=== PATIENT | female | born 1995 | race Caucasian/White ===

== ENCOUNTER 2024-02-07 10:56 | Outpatient (CLI) | payer OTHER, SELFPAY ==
--- NOTE | 2024-02-07 11:15 | CRLHL7_ITS ---
For Patients: As a result of the Century Cures Act, medical imaging exams and procedure reports are released immediately into your electronic medical record. You may view this report before your referring provider. If you have questions, please contact your health care provider. INDICATION : HISTORY OF PAPILLARY THYROID CANCER STATUS POST TOTAL THYROIDECTOMY. ENLARGED RIGHT CERVICAL LYMPH NODE. TECHNIQUE : Ultrasound-guided fine-needle aspiration of right cervical lymph node. Comparison : Ultrasound 01/24/2024 FINDINGS : PROCEDURE: After the informed consent and time-out, multiple fine needle aspirations were obtained from the right cervical lymph node. Fine needle performed. 25 gauge needles were used. Lidocaine was used for local anesthesia. The preliminary cytology was adequate for interpretation. Real-time imaging was used for guidance and needle placement. Post imaging ultrasound demonstrates no immediate complication. IMPRESSION : Successful fine needle aspiration of right cervical lymph node. Dictated by Ki Bradley MD @ 02/07/2024 12:20:13 PM (Electronically Signed)
== END 2024-02-07 10:57 | disposition home or self-care (01) ==
LOC: US 11:03
PROVIDERS: PCP Nurse Practitioner Family; Visit Provider Internal Medicine
DX: C73 Malignant neoplasm of thyroid gland (principal); R59.0 Localized enlarged lymph nodes
CPT/HCPCS: 10005; 36415; 84432; 88173

== ENCOUNTER 2025-04-19 10:47 | Emergency (ER) | payer OTHER, SELFPAY ==
[2025-04-19 10:55] VITALS: BP 150/98; PULSE 74; RESP 18; TEMP 36.8; O2SAT 97; BMI 57.0
--- OUTSIDE RECORDS SUMMARY | 2025-04-19 11:01 | XMS_ITS | Clinical Summary ---
Author Organization [facility] Address [address] [place] [id number] Care Team Providers Care Athletic Shoe Designer Name Role Phone Neeru Alfonso NP Primary Care Provider SchempOdilon singh MD Unavailable [phone] Allergies Active Allergy Reactions Criticality Noted Date Comments Latex Hives High 03/15/2008 Medications omeprazole (PRILOSEC) 20 mg Delayed-Release capsuleIndicatio ns:Hiatal hernia,Gastritis , presence of bleeding unspecified, unspecified chronicity, unspecified gastritis type TAKE 1 CAPSULE(20 MG) BY MOUTH EVERY DAY BEFORE A MEAL 90 Capsule 2 4 Active durable medical equipment (DME)Indications :Carpal tunnel syndrome of right wrist Comfort Form Wrist , RT, XL 1 Each 4 Active Additional Information Patient not taking.Reported on 03/05/2025 levothyroxine (SYNTHROID) 200 mcg tabletIndication s:Thyroid cancer (HC) Take 250mcg daily (200mcg tablet + 50mcg tablet) 90 Tablet 3 5 Active levothyroxine (SYNTHROID) 50 mcg tabletIndication s:Thyroid cancer (HC) Take 250mcg daily (200mcg tablet + 50mcg tablet) 90 Tablet 3 5 Active labetaloL 100 mg tabletIndication s:HTN (hypertension) TAKE 1/2 TABLET(50 MG) BY MOUTH TWICE DAILY 180 Tablet 1 5 Active Cetirizine (ZyrTEC) 10 mg cap Take 2 Capsules by mouth at bedtime. Active loratadine (Claritin) 10 mg tablet Take 20 mg by mouth once daily. Active PNV Comb#19-Iron-FA- [place] 3 29-1-400 mg tablet Take 1 Tablet by mouth once daily. Active medroxyPROGESTER one (Provera) 10 mg tabletIndication s:PCOS (polycystic ovarian syndrome),Abnorm al uterine bleeding (AUB) Take 1 pill by mouth for 10 days of the month, repeat monthly 90 Tablet Active predniSONE (DELTASONE) 10 mg tabletIndication s:Urticaria TAKE 4 TABLETS EVERY DAY X3 DAYS, 3 TABLETS EVERY DAY X3 DAYS, 2 TABLETS EVERY DAY X3 DAYS, 1 TABLET EVERY DAY X3 DAYS. WITH FOOD 30 Tablet Active Hospital, Clinic, or Other Facility Administered Medication Ordered Dose Route Frequency Start Date End Date Status triamcinolone acetonide (KENALOG) injection 20 mgIndications:Carpal tunnel syndrome of right wrist 20 mg IArtic ONE TIME 04/02/2025 04/02/2025 Ended Active Problems Problem Noted Date Diagnosed Date Pap smear for cervical cancer screening 02/14/20 24 Overview (02/14/2024): 02/04/2024: NIL/HPV negative Plan: Pap and HPV due in 5 years. Post-surgical hypothyroidism 11/15/2023 Carpal tunnel syndrome of right wrist 10/25/2023 Carpal tunnel syndrome of left wrist 10/25/2023 Cubital tunnel syndrome on right 10/25/2023 Thyroid cancer 10/22/2022 Cancer Staging:Pathologic stage from 10/22/2022:Stage I(pT3a, pN0, cM0, Age at diagnosis: < 55 years) - Signed by Tammy Shaikh MD on 11/29/2022 Urticaria 07/18/2022 Systemic inflammatory respon se syndrome (SIRS) due to non-infectious process without acute organ dysfunction 07/18/2022 Anaphylaxis 07/18/2022 PCOS (polycystic ovarian syndrome) 08/29/2021 Kidney stone 08/29/2021 Morbid obesity with BMI of 45.0-49.9, adult 12/10/2017 Anxiety 04/26/2017 Mild intermittent asthma 01/04/2010 Gastritis Resolved Problems Problem Noted Date Diagnosed Date Resolved Date Multiple thyroid nodules 06/17/202204/2024 Hyperthyroidism 03/16/2022 11/15/2023 Encounters Date Type Department Care Team Description 04/08/[address] [place] [address] Neeru Alfonso NP Refill Request (Prednisone) 04/02/2025 12:30 PM CDT Office Visit [facility] [address] [facility] [place] [address] Franklin Junior MD Recheck (Right Wrist) 04/01/2025 Travel 03/10/[address] [place] [address] Nikia Rogers DO Refill Request (Medroxyprogesterone 10 mg) 03/05/2025 3:30 PM CDT Office Visit [address] [place] [address] Nikia Rogers DO Direct Mail Manager Exam (Follow up to starting progesterone and fertility) 03/05/2025 Travel 01/22/2025 4:00 PM CDT Ancillary Procedure [facility] [address] [place] [address] 01/22/2025 Travel 01/17/2025 Travel from Last 3 Months Immunizations Immunization Administration Dates Next Due COVID-19 vaccine (Pfizer-Bio NTech 30mcg/0.3mL) 12YO+ BIVALENT PF, MDV 12/21/2022 COVID-19 vaccine (Pfizer-Bio NTech 30mcg/0.3mL) 12YO+ ELAINE-SUCROSE PF, MDV 08/29/2021 HPV 9 (Gardasil 9) 03/16/2022,08/29/2021 Human Papilloma Virus Vaccine 12/23/2014 Influenza, IIV4 03/16/2022 MENINGOCOCCAL VACCINE 2 VIAL 2MO-55YO (MENVEO) 0 12/23/2014 Pneumococcal Conj 20-valent (Prevnar 20) 023 Pneumococcal Poly,23-Valent (Pneumovax) 08/29/19 22 Tdap 01/05/2015 Family History Medical History Relation Name Comments Good Health Brother Good Health Father Good Health Mother Hypertension Mother Good Health Sister Relation Name Status Comments Brother Father Alive Mother Alive Sister Social History Tobacco Use Types Packs/Day Years Used Date Smoking Tobacco: Never Smokeless Tobacco: Never Tobacco Cessation:Counseling Given: Yes Alcohol Use Standard Drinks/Week Comments Yes 0 (1 standard drink = 0.6 oz pur e alcohol) very rare PHQ-2 Answer Date Recorded PHQ-2 TOTAL SCORE 0 09/30/2023 Social Connections Answer Date Recorded Do you often feel lonely or isolated from those around you? 0 02/04/2024 Financial Resource Strain Answer Date R ecorded Difficulty of Paying Living Expenses 3 02/04/2024 Difficulty of Paying Living Expenses Not on file 02/04/2024 Food Insecurity Answer Date Recorded Do you worry your food will run out before you are able to buy more? 1 02/04/2024 Transportation Needs Answer Date Record ed Does lack of transportation keep you from medica l appointments? 1 02/04/2024 Does lack of transportation keep you from work, meetings or getting things that you need? 1 02/04/2024 Housing Stability Answer Date Recorded What is your housing situation today? 1 02/04/2024 Utilities Answer Date Recorded Do you have trouble paying f or utilities (for example, heat, electricity, water, phone)? 1 02/04/2024 Comments No Sex and Gender Information Value Date Recorded Sex Assigned at Not on file Legal Sex Female 5:44 AM DEEP [employer] Gender Identity Not on file Sexual Orientation Not on file Obstetrics History Para Term AB IAB SAB Ectopic Multiple Livin g Live Births 0 0 0 0 0 0 0 0 0 0 0 Last Filed Vital Signs Vital Sign Reading Time Taken Comments Blood Pressure 132/82 03/05/2025 3:30 PM CDT Pulse 80 03/05/2025 3:30 PM CDT Temperature 36.4 C (97.5 F) 11/08/2022 2:00 PM CDT Respiratory Rate 18 02/04/2024 1:18 PM CDT Oxygen Saturation 98% 11/04/2023 2:15 PM CDT Inhaled Oxygen Concentration - - Weight 173.1 kg (381 lb 9.6 oz) 03/05/2025 3:30 PM CDT Height 173 cm (5' 8.11) 03/05/2025 3:30 PM CDT Body Mass Index 57.83 03/05/2025 3:30 PM CDT Plan of Treatment Health Maintenance Due Date Last Done Comments HIV for age 15-65 2010 Hepatitis B series for 19+ ( 1 of 3 - 19+ 3-dose series) 2014 Depression screening for age 12+ 09/29/2024 09/30/2023, 03/16/2022, 01/12/2021, Additional history exists Tetanus booster 01/05/2025 01/05/2015 COVID-19 vaccine series ( season) 2025 12/21/2022, 08/29/2021, 04/24/2021, Additional history exists Influenza Vaccine (#1) 2025 03/16/2022 BMI (ht and wt on same day) for age 18+ 03/05/2026 03/05/2025, 02/04/2024, 11/04/2023, Additional history exists Pap test for age 21-65 02/03/2029 , 02/04/2024, 01/12/2021, Additional history exists RSV vaccine for adults or (1 - 1-dose 75+ series) 2070 HPV series for age 9-45 Completed 03/16/20, 08/29/2021, 12/23/2014 Hepatitis C screening for ag e 18-79 Completed 03/16/2022 Pneumococcal series for age 6-49 Completed 12/22/19 23, 08/29/2021 Goals Goal Patient Goal Type Associated Problems Recent Progress Patient-Stated? Author BLOOD PRESSURE-MA INTAINS BP LESS THAN 130/80 Blood Pressure No Ashanti Lobo RN Procedures Procedure Name Priority Date/Time Associated Diagnosis Comments US NECK OR HEAD SOFT TISSUE Routine 01/22/2025 4:12 PM CDT Thyroid cancer (HC) PRACTICE ADVISOR THIN PREP PAP SCREEN IMAGED Routine 02/04/2024 1:10 PM CDT Screening for malignant neoplasm of cervix ANTI HCV Routine 03/16/2022 4:23 PM CDT Encounter for hepatitis C screening test for low risk patient from Last 3 Months or Most Recently Relevant to Health Maintenance Results * US NECK OR HEAD SOFT TISSUE (01/22/2025 4:12 PM CDT) Anatomical Region Laterality Modality NECK Ultrasound 01/25/2025 3:28 PM CDT Narrative 01/25/2025 3:28 PM CDT For Patients: As a result of the Cures Act, medical imaging exams and procedure reports are released immediately into your electronic medical record. You may view this report before your referring provider. If you have questions, please contact your health care provider. INDICATION : Thyroidectomy. Thyroid carcinoma. TECHNIQUE : Soft tissue ultrasound thyroid fossa and neck COMPARISON: 01/24/2024. FINDINGS : Stable ovoid hypoechoic structure in the right cervical chain 2.0 x 1.6 cm previously 2.4 x 2.0 cm. No new soft tissue mass in the thyroid fossa. IMPRESSION : 1. No recurrent mass in the thyroid fossa. 2. Stable ovoid hypoechoic structure right cervical chain possibly a lymph node. Dictated by Anderson Gonzalez MD @ 01/25/2025 3:28:19 PM (Electronically Signed) Procedure Note Anderson Gonzalez MD - 01/25/2025 For Patients: As a result of the Cures Act, medical imagingexams and procedure reports are released immediately into your electronicmedical record. You may view this report before your referring provider.If you have questions, please contact your health care provider. INDICATION : Thyroidectomy. Thyroid carcinoma. TECHNIQUE : Soft tissue ultrasound thyroid fossa and neck COMPARISON: 01/24/2024. FINDINGS : Stable ovoid hypoechoic structure in the right cervical chain 2.0 x 1.6 cmpreviously 2.4 x 2.0 cm. No new soft tissue mass in the thyroid fossa. IMPRESSION : 1. No recurrent mass in the thyroid fossa. 2. Stable ovoid hypoechoic structure right cervical chain possibly a lymphnode. Dictated by Anderson Gonzalez MD @ 01/25/2025 3:28:19 PM (Electronically Signed) Odilon Marcum MD Final Resu lt * PRACTICE ADVISOR THIN PREP PAP SCREEN IMAGED [[id number]] (02/04/2024 1:10 PM CDT) Case Report Gynecologic Cytology Report Case: [id number] Authorizing Provider: Neeru Alfonso NP Collected: 02/04/2024 1310 Ordering Location: [facility] Received: 02/04/2024 1427 Clinic First Screen: Cassi Gaytan Specimen: PRACTICE ADVISOR ThinPrep Vial Screening, Cervical 02/13/2024 12:59 PM CDT [facility] INTERPRETATION/ RESULT NEGATIVE FOR INTRAEPITHELIAL LESION OR MALIGNANCY (NIL) (none) 02/13/2024 12:59 PM CDT [facility] at 1259 CDT SPECIMEN ADEQUACY Satisfactory for evaluation No endocervical component seen 02/13/2024 12:59 PM CDT [facility] HPV REQUEST HPV and PAP 02/13/2024 12:59 PM CDT [facility] Date of LMP 01/23/2024 02/13/2024 12:59 PM CDT [facility] Last Pap Date 01/12/21 02/13/2024 12:59 PM CDT [facility] Last Pap Result NIL 12:59 PM CDT [facility] Abnormal Pap or [place] Bx in last 5 years No 02/13/2024 12:59 PM CDT [facility] Menstrual Status Regular Periods 02/13/2024 12:59 PM CDT [facility] [place] Bx Done Today No 02/13/2024 12:59 PM CDT [facility] [employer] [facility] Additional Information None given 02/13/2024 12:59 PM CDT [facility] Comment: [email or web address] - [address], [place] [address] and [facility] - [address], [place] [address] and [facility] - [address] [place] [address] Interpreted at [facility] - [address] [place] [address] Automated Review Successful 02/13/2024 12:59 PM CDT [facility] ENTR[facility] LAB[facility] Comment:Specimen processed s uccessfully by automated shaft sinker device, dotHIVPrep Imaging System, [email or web address] ANCILLARY TESTING PRACTICE ADVISOR HPV Ordered, Please see separate report 02/13/2024 12:59 PM CDT [facility] ENTR[facility] LABORATORY Note The pap test is a screening technique, not a diagnostic procedure. It is used primarily to screen for squamous cancers and precursor lesions. Published studies have shown that it is subject to both false negative and false positive results. The pap test should not be used as the sole means to diagnose or exclude pre-malignant and malignant lesions. 02/13/2024 12:59 PM CDT [facility] Other (Cervical) Non-Blood / Unknown 02/04/2024 1:10 PM CDT 02/04/2024 2:27 PM CDT us Neeru Alfonso NP PATHOLOGY/CYTOLOGY Final Res ult [facility] [address] [place] [address], [place] * ANTI HCV (03/16/2022 4:23 PM CDT) HEPATITIS C ANTIBODY Non-React erin Non-React erin 03/17/2022 1:34 PM CDT [facility] Comment:Antibodies to HCV no t detected; does not exclude the possibility of exposure to HCV. Blood BLOOD SPECIMEN / Unknown Venipuncture / Unknown 03/16/2022 4:23 PM CDT 03/16/2022 4:26 PM CDT us Neeru Alfonso NP SEND OUTS Final Result [facility] [address] [place] [address], from Last 3 Months or Most Recently Relevant to Health Maintenance Insurance [employer] Advance Directives * Full Code (Latest Code Status on File) Date Activated Date Inactivated Comments 11/08/2022 8:21 AM 11/08/2022 4:25 PM Question Answer Comments Code Status Discussion: Reviewed Preferences * Full Code Date Activated Date Inactivated Comments 10/11/2022 6:26 AM 10/11/2022 6:07 PM Question Answer Comments Code Status Discussion: Reviewed Preferences * Full Code Date Activated Date Inactivated Comments 07/18/2022 5:23 AM 07/18/2022 5:36 PM Question Answer Comments Code Status Discussion: Reviewed Preferences * Full Code Date Activated Date Inactivated Comments 05/30/2021 12:21 PM 05/30/2021 4:33 PM Question Answer Comments Code Status Discussion: Discussed Care Teams Athletic Shoe Designer Relationship Specialty Start Date End Date Neeru Alfonso NP [address] [facility] [place] [address] PCP - General Family Practice 11/26/12 [facility] [address] [facility] [address] [place] [address] Endocrinology 09/03/24
--- NOTE | 2025-04-19 11:19 | CRLHL7_ITS ---
For Patients: As a result of the Century Cures Act, medical imaging exams and procedure reports are released immediately into your electronic medical record. You may view this report before your referring provider. If you have questions, please contact your health care provider. INDICATION: Left flank pain, history of stones.. TECHNIQUE: CT abdomen and pelvis without contrast. COMPARISON: CT abdomen and pelvis 06/18/2021. FINDINGS: Lower chest: Unremarkable. Liver: Normal in size and attenuation. No suspicious masses. Gallbladder and bile ducts: No stones or inflammation. No biliary dilatation. Pancreas: Unremarkable. No mass or inflammation. Spleen: Normal in size. No masses. Adrenal glands: Normal in size. No nodules. Kidneys: 2 mm nonobstructing right nephrolith. 2 mm stone within the left distal ureter just proximal to the ureterovesicular junction without significant associated proximal hydroureteronephrosis. GI tract: Small hiatal hernia. No bowel obstruction. No mural thickening. Normal appendix. Vasculature: Abdominal aorta is normal in caliber. Lymph nodes: No lymphadenopathy. Peritoneum/Abdominal Wall: Unremarkable. No free air or significant free fluid. Pelvis: Unremarkable. No pelvic masses. Bones: Unremarkable for age. IMPRESSION: 1. 2 mm stone within the left distal ureter just proximal to the ureterovesicular junction without significant associated proximal hydroureteronephrosis. 2. 2 mm nonobstructing right nephrolith. Please note that all CT scans at this facility use dose modulation, iterative reconstruction, and/or weight-based dosing when appropriate to reduce radiation dose to as low as reasonably achievable. Dictated by Johnnie Cintron MD @ 04/19/2025 12:02:19 PM (Electronically Signed)
--- NOTE | 2025-04-19 11:22 | ED_ITS ---
HPI - General Adult General Date Seen: 04/19/25 Chief complaint: Flank Pain Stated complaint: kidney stone Time Seen by Provider: 04/19/25 10:54 History of Present Illness HPI narrative: Patient is a 30-year-old young woman here with her for evaluation of left flank pain. She tells me that she has a history of a kidney stone once before that felt similar. This was a larger stone that she was ultimately able to pass but she says it took 3 weeks. She thinks she has passed a couple of smaller 1 since then. She has been having some pain in her left hip area with sleep the past couple of days and then this morning developed sharper pain in the left flank. She just finished her period, has noted some blood in her urine but she isn't sure if that is residual from her period. She has not had dysuria or fevers. She has had some nausea but no vomiting. She took an oxycodone at home and so pain is improved at this point. No suspicion of . She notes a history of thyroid cancer status post thyroidectomy, on replacement. She does not smoke or drink. Related Data Home Medications ?Medication ?Instructions ?Recorded ?Confirmed labetalol 100 mg tablet PO 04/19/25 levothyroxine 200 mcg tablet 200 mcg PO DAILY 04/19/25 04/19/25 levothyroxine 50 mcg tablet 50 mcg PO DAILY 04/19/25 1 medroxyprogesterone 10 mg tablet mg PO 04/19/25 prednisone 10 mg tablet PO 04/19/25 triamcinolone acetonide 0.1 % 1 applic topical BID-TID 04/19/25 04/19/25 topical cream Previous Rx's ?Medication ?Instructions ?Recorded tamsulosin 0.4 mg capsule (Flomax) 0.4 mg PO DAILY #10 caps 04/19/25 Allergies Allergy/AdvReac Type Severity Reaction Status Date / Time latex Allergy Severe hives, Verified 04/19/25 11:03 anaphaxis metformin Allergy Intermediate vomited Verified 04/19/25 11:03 Review of Systems Status of ROS: Reports: 6 or more systems reviewed and unremarkable except as noted in History and below Exam Narrative: Exam Narrative: Vital signs reviewed In general, alert, nontoxic young woman. She looks comfortable at this time Head: Normocephalic, atraumatic. Eyes: Sclera clear. Pupils equal and reactive. ENT: Mucous membranes moist. Neck: Supple without adenopathy. Heart: Regular rate and rhythm without murmur. Lungs: Clear. No increased work of breathing, crackles or wheezes. Abdomen: Soft, nontender to palpation. No CVA tenderness. Extremities: Well perfused, pulses intact. No significant edema. Neurologic: Alert, conversant. Speech fluent, face symmetric. Moves all extremities equally. Skin: Warm, dry well perfused. Affect: Normal. Const: Vital Signs, click to edit/add: Vital Signs - 24 hr 04/19/25 10:55 Temperature 98.2 F Pulse Rate [Radial ] 74 Respiratory Rate 18 Blood Pressure [Ri ght Upper Arm] 150/98 H Pulse Oximetry 97 Oxygen Delivery Me thod Room Air Course Course ED Course: Patient presents with left flank pain, according to her this feels similar to previous kidney stones. She did provide a urine sample and this is pending at this time. Will get a noncontrast CT to look for ureteral stone, hydronephrosis etcetera. Will give some Toradol and Zofran, L of fluids IV. Patient is feeling well. I reviewed her CT scan, she does have a 2 mm ureteral stone near the UVJ, no significant hydronephrosis. I reviewed the radiology report which is in agreement. She also has a nonobstructing stone on the right. I reviewed all these results with her. Her urinalysis shows a large number of red cells but no white cells, she is afebrile and nontoxic here. Pain is controlled. She is comfortable with discharge. She has felt like Flomax was helpful in the past with her symptoms so will prescribe that as well as oxycodone, Zofran, ibuprofen 3 times daily for baseline pain control. Strain urine, discussed reasons to return such as severe uncontrolled pain, shaking chills or fever, otherwise recommend urology follow-up if she does not pass the stone in the next couple of weeks. Reviewed that this stone based on its size should pass without intervention. Vital Signs Vital signs: Initial Vital Signs Temperature 98.2 F 04/19/25 10:55 Temperature Source Temporal Artery Scan 04/19/25 10:55 Pulse Rate 74 04/19/25 10:55 Respiratory Rate 18 04/19/25 10:55 Blood Pressure 150/98 H 04/19/25 10:55 Blood Pressure Mean 115 H 04/19/25 10:55 Blood Pressure Position Sitting 04/19/25 10:55 Pulse Oximetry 97 04/19/25 10:55 Oxygen Delivery Method Room Air 04/19/25 10:55 Vital Signs Temperature 98.2 F 04/19/25 10:55 Pulse Rate 74 04/19/25 10:55 Respiratory Rate 18 04/19/25 10:55 Blood Pressure 150/98 H 04/19/25 10:55 Pulse Oximetry 97 04/19/25 10:55 Oxygen Delivery Method Room Air 04/19/25 10:55 Temperature 98.2 F 04/19/25 10:55 Pulse Rate 74 04/19/25 10:55 Respiratory Rate 18 04/19/25 10:55 Blood Pressure 150/98 H 04/19/25 10:55 Pulse Oximetry 97 04/19/25 10:55 Oxygen Delivery Method Room Air 04/19/25 10:55 Medications Administered Medications: Discontinued Medications Generic Name Dose Route Start Last Admin Trade Name Luis Fq PRN Reason Stop Dose Admin Sodium Chloride 1,000 mls @ 1,000 mls/hr 04/19/25 11:30 04/19/25 12:25 0.9 % Sodium Chloride 1000 Ml IV 04/19/25 12:29 Infused .Q1H AUGUST Infusion Ketorolac Tromethamine 15 mg 04/19/25 11:19 04/19/25 11:38 Ketorolac 15 Mg/Ml Inj IVP 04/19/25 11:20 15 mg ONCE ONE Administration Ondansetron HCl 4 mg 04/19/25 11:19 04/19/25 11:38 Ondansetron 2 Mg/Ml Inj IVP 04/19/25 11:20 4 mg ONCE ONE Administration Medical Decision Making Lab Data Labs: Lab Results 04/19/25 Range/Units 11:10 Urine Color Yellow (Yellow) Urine Appearance Clear (Clear) Urine pH 6.0 (5.0-8.5) Ur Specific [place] 1.025 (1.000-1.030) Urine Protein Trace A (Negative) Urine Glucose (UA) Negative (Negative) Urine Ketones Negative (Negative) Urine Blood 3+ A (Negative) Urine Nitrite Negative (Negative) Urine Bilirubin Negative (Negative) Urine Urobilinogen 0.2 (0.2-1.0) Ur Leukocyte Esterase Negative (Negative) Urine RBC 50-100 A (0-2) Urine WBC 0-2 (0-5) Ur Squamous Epith Cells Moderate A (None-Few) Amorphous Sediment Moderate A (None) Urine Bacteria Moderate A (None) Discharge Plan Discharge Clinical Impression: Left ureteral stone Patient Disposition: Home, Self-Care Condition: Improved Instructions: Kidney Stones (ED) Additional Instructions: Ibuprofen 400 mg 3 times daily with food. Oxycodone if needed for uncontrolled pain. Zofran if needed for nausea. Flomax as prescribed. This stone is 2 mm and is near the bladder, I expect that it will pass on its own in the next few days to week. If symptoms persist in you have not passed the stone in a week or 2, would recommend Urology follow-up. Strain urine. For severe uncontrolled pain, new symptoms such as fevers or chills, return to the emergency department. Prescriptions: New tamsulosin [Flomax] 0.4 mg capsule 0.4 mg PO DAILY Qty: 10 2RF No Action medroxyprogesterone 10 mg tablet PO Patient Comments: takes 10 days out of the month prednisone 10 mg tablet PO triamcinolone acetonide 0.1 % cream 1 applic topical BID-TID levothyroxine 50 mcg tablet 50 mcg PO DAILY levothyroxine 200 mcg tablet 200 mcg PO DAILY labetalol 100 mg tablet PO Follow Up/Referrals: Neeru Alfonso CNP [Primary Care Provider, Family Practice] Stand Alone Forms: Epic Sciencesth Info Instructions
[2025-04-19 11:23] LABS: Appearance Urine Clear (Clear)
[2025-04-19] MEDS: ONDANSETRON 2 MG/ML inj 4 MG IVP (11:38)
== END 2025-04-19 12:26 | disposition home or self-care (01) ==
PROVIDERS: Emergency Provider Emergency Medicine; PCP Nurse Practitioner Family
DX: N20.1 Calculus of ureter (principal)
CPT/HCPCS: 74176; 81001; 81003; 87086; 96374; 96375; 99284; J1885; J2405; J7030